=== PATIENT | male | born 1945 | race Caucasian/White ===

== ENCOUNTER → 2018-05-14 | Outpatient (CLI) | payer OTHER ==
[~2018-05-14] MED LIST: AMLO10TA2 PO; APIX5TAB PO; ATOR20TA9 PO; IRON; METO25TA35 PO; TYLENOL PM PO
== END | disposition home or self-care (01) ==
LOC: STAR 09:53
PROVIDERS: ATTEND Internal Medicine
DX: Z01.818 Encounter for other preprocedural examination (principal)
CPT/HCPCS: 93005

== ENCOUNTER 2018-05-21 09:01 | Day surgery (SDC) | payer OTHER ==
[2018-05-14 10:29] VITALS: BP 142/87
[~2018-05-21] VITALS: Ht 175.3 cm; Wt 85.5 kg
[2018-05-21] MEDS ORDERED: LACTATED RINGERS 1,000 ML IV SCH (09:32)
[2018-05-21] MEDS ORDERED: SUCCINYLCHOLINE 20 MG/ML, 10ML ONE (10:56)
[2018-05-21] MEDS ORDERED: PROPOFOL 10 MG/ML, 20ML ONE (10:56)
[2018-05-21] MEDS ORDERED: FENTANYL PF 100 MCG/2ML ONE (10:56)
[2018-05-21] MEDS ORDERED: ROCURONIUM 10 MG/ML,10ML ONE (10:56)
[2018-05-21] MEDS ORDERED: OMNIPAQUE 350 MG/ML, 50 ML BOTTLE ONE (11:43)
== END 2018-05-21 13:05 ==
LOC: OUT 09:01
PROVIDERS: ATTEND Internal Medicine
DX: K83.9 Disease of biliary tract, unspecified (principal); I25.10 Atherosclerotic heart disease of native coronary artery without angina pectoris; I10 Essential (primary) hypertension; I48.91 Unspecified atrial fibrillation; Z90.49 Acquired absence of other specified parts of digestive tract; Z98.890 Other specified postprocedural states
CPT/HCPCS: 43276; 74328; C1769; C1894; C2625; J0330; J2704; J3010; J7120; Q9967

== ENCOUNTER → 2018-09-12 | Outpatient (CLI) | payer OTHER ==
[~2018-09-12] MED LIST changes: -AMLO10TA2 PO; +AMLO10TA6 PO; +CYAN100014 PO
== END | disposition home or self-care (01) ==
LOC: STAR 07:41
PROVIDERS: ATTEND Internal Medicine
DX: Z01.818 Encounter for other preprocedural examination (principal); K91.81 Other intraoperative complications of digestive system
CPT/HCPCS: 93005

== ENCOUNTER 2018-09-17 06:40 | Day surgery (SDC) | payer MEDICARE, OTHER ==
[~2018-09-17] VITALS: Ht 175.3 cm; Wt 86.4 kg
[2018-09-17] MEDS ORDERED: LACTATED RINGERS 1,000 ML IV SCH (07:06)
[2018-09-17 07:38] VITALS: BP 156/84
[2018-09-17] MEDS ORDERED: FENTANYL PF 100 MCG/2ML ONE (08:26)
[2018-09-17] MEDS ORDERED: MIDAZOLAM 1 MG/ML, 2ML ONE (08:26)
[2018-09-17] MEDS ORDERED: PROPOFOL 10 MG/ML, 20ML ONE (08:28)
[2018-09-17] MEDS ORDERED: MEPERIDINE/PF 25MG/0.5ML IVPush PRN (09:30)
[2018-09-17] MEDS ORDERED: OXYcodone 5 MG/5 ML ORAL.SOL UDC PO PRN (09:30)
[2018-09-17] MEDS ORDERED: FENTANYL PF 100 MCG/2ML IV PRN (09:30)
[2018-09-17] MEDS ORDERED: ACETAMINOPHEN 325 MG TABLET PO PRN (09:30)
[2018-09-17] MEDS ORDERED: MORPHINE SULFATE 4 MG/ML, 1ML IVPush PRN (09:30)
== END 2018-09-17 10:38 | disposition home or self-care (01) ==
LOC: OUT 06:40
PROVIDERS: ATTEND Internal Medicine
DX: T85.520A Displacement of bile duct prosthesis, initial encounter (principal); I10 Essential (primary) hypertension; E78.5 Hyperlipidemia, unspecified; I25.10 Atherosclerotic heart disease of native coronary artery without angina pectoris; I48.91 Unspecified atrial fibrillation; Y83.8 Other surgical procedures as the cause of abnormal reaction of the patient, or of later complication, without mention of misadventure at the time of the procedure; Y92.89 Other specified places as the place of occurrence of the external cause; Z98.890 Other specified postprocedural states; Z90.49 Acquired absence of other specified parts of digestive tract
CPT/HCPCS: 43276; 74328; J2250; J2704; J3010; J7120